=== PATIENT | female | born 1955 | race Caucasian/White ===

== ENCOUNTER → 2020-10-09 | Outpatient (CLI) | payer OTHER ==
[~2020-10-09] MED LIST: ASPI-1197 PO; ATOR10 PO; DEXL60CA3 PO; FISH1CAP49 PO; MULT-1203 PO
== END | disposition home or self-care (01) ==
LOC: RAH 09:05
PROVIDERS: ATTEND Internal Medicine Gastroenterology
DX: R12 Heartburn (principal); Z98.84 Bariatric surgery status
CPT/HCPCS: 74240

== ENCOUNTER → 2022-02-10 | Outpatient (CLI) | payer OTHER | END | disposition home or self-care (01) | LOC: SHCH 07:33 | PROVIDERS: ATTEND Student in an Organized Health Care Education/Training Program | DX: R07.9 Chest pain, unspecified (principal); E78.5 Hyperlipidemia, unspecified | CPT/HCPCS: 93306 ==

== ENCOUNTER → 2022-02-13 | Outpatient (CLI) | payer MEDICARE ==
[2022-02-13 12:46] LABS: ALBUMIN 3.6 g/dL (3.5-5.0); CREATININE 1.3 mg/dL (0.5-1.5); POTASSIUM 4.1 mmol/L (3.5-5.1); TOTAL PROTEIN, SERUM 7.1 g/dL (6.0-8.3)
== END | disposition home or self-care (01) ==
LOC: LAB 08:08
PROVIDERS: ATTEND Student in an Organized Health Care Education/Training Program
DX: R07.9 Chest pain, unspecified (principal)
CPT/HCPCS: 36415; 80053

== ENCOUNTER → 2022-02-19 | Outpatient (CLI) | payer MEDICARE ==
[~2022-02-19] MED LIST changes: +IOHEXOL 350 MG/ML 100ML INFUS..BTL IV ONE; +METOPROLOL TARTRATE 1 MG/ML 5ML VIAL IV ONE
== END | disposition home or self-care (01) ==
LOC: RAH 08:42
PROVIDERS: ATTEND Student in an Organized Health Care Education/Training Program
DX: R07.9 Chest pain, unspecified (principal); M47.815 Spondylosis without myelopathy or radiculopathy, thoracolumbar region
CPT/HCPCS: 75574; J3490; Q9967

== ENCOUNTER → 2022-06-06 | Outpatient (CLI) | payer MEDICARE ==
[~2022-06-06] MED LIST changes: -IOHEXOL 350 MG/ML 100ML INFUS..BTL IV ONE; -METOPROLOL TARTRATE 1 MG/ML 5ML VIAL IV ONE
== END | disposition home or self-care (01) ==
LOC: RAH 11:08
PROVIDERS: ATTEND Student in an Organized Health Care Education/Training Program
DX: K82.8 Other specified diseases of gallbladder (principal); N20.0 Calculus of kidney
CPT/HCPCS: 74176

== ENCOUNTER → 2022-06-16 | Outpatient (CLI) | payer MEDICARE ==
[2022-06-16 13:23] LABS: ALBUMIN 3.6 g/dL (3.5-5.0); CREATININE 1.3 mg/dL (0.5-1.5); POTASSIUM 3.8 mmol/L (3.5-5.1); TOTAL PROTEIN, SERUM 6.6 g/dL (6.0-8.3)
== END | disposition home or self-care (01) ==
LOC: LAB 08:27
PROVIDERS: ATTEND Student in an Organized Health Care Education/Training Program
DX: I10 Essential (primary) hypertension (principal); E78.5 Hyperlipidemia, unspecified
CPT/HCPCS: 36415; 80053; 80061

== ENCOUNTER → 2023-04-08 | Outpatient (CLI) | payer MEDICARE ==
[2023-04-08 12:33] LABS: ALBUMIN 3.8 g/dL (3.5-5.0); BILIRUBIN,TOTAL 0.9 mg/dL (0.2-1.0); CREATININE 1.3 mg/dL (0.5-1.5); POTASSIUM 3.8 mmol/L (3.5-5.1); TOTAL PROTEIN, SERUM 6.8 g/dL (6.0-8.3)
== END | disposition home or self-care (01) ==
LOC: LAB 11:20
PROVIDERS: ATTEND Student in an Organized Health Care Education/Training Program
DX: N17.9 Acute kidney failure, unspecified (principal); E78.5 Hyperlipidemia, unspecified
CPT/HCPCS: 36415; 80053; 80061

== ENCOUNTER 2024-02-01 11:45 | Day surgery (SDC) | payer MEDICARE ==
[2024-01-28 10:35] LABS: BASOPHILS # (AUTO) 0.05 K/uL (0.00-0.20); BASOPHILS % (AUTO) 1.1 % (0.0-5.0); EOSINOPHILS # (AUTO) 0.22 K/uL (0.00-0.70); EOSINOPHILS % (AUTO) 4.6 % (0.0-8.0); HEMATOCRIT 37.3 % (36-48); IMMATURE GRANULOCYTE ABSOLUTE 0.01 K/uL (0-1); LYMPHOCYTES # (AUTO) 2.1 K/uL (1.0-4.8); LYMPHOCYTES % (AUTO) 44.8 % (21.0-51.0); MEAN CORPUSCULAR HEMOGLOBIN 31.4 pg (27.0-33.0); MEAN CORPUSCULAR HGB CONC 32.7 g/dL (32.0-36.0); MEAN CORPUSCULAR VOLUME 95.9 fL (79-99); MONOCYTES # (AUTO) 0.5 K/uL (0.1-1.0); MONOCYTES % (AUTO) 9.7 % (3.0-13.0); NEUTROPHILS # (AUTO) 1.9 K/uL (1.8-7.7); NEUTROPHILS % (AUTO) 39.6 % (40.0-77.0); PLATELET COUNT (AUTO) 174 K/uL (130-400); RED BLOOD CELL COUNT(AUTO) 3.89 MIL/uL (4.00-5.50); RED CELL DISTRIBUTION WIDTH 13.2 % (11.0-15.5); WHITE BLOOD COUNT (AUTO) 4.8 K/uL (4.8-10.8)
[2024-01-28 10:40] LABS: CREATININE 1.2 mg/dL (0.5-1.0)
[2024-01-28 11:16] VITALS: BP 111/55; PULSE 58; RESP 16; TEMP 97.1
[2024-02-01] VITALS (13 sets, daily range): BP systolic 101–129; BP diastolic 49–68; PULSE 59–87; RESP 16–20; TEMP 96.9–98
[~2024-02-01] VITALS: Ht 160 cm; Wt 58.5 kg
[~2024-02-01 11:45] MED LIST changes: -ASPI-1197 PO; -ATOR10 PO; +ATOR10TA69 PO; +CALC-1125 PO; +CHOL2000 PO; +CYCL30DR OU; -DEXL60CA3 PO; +DONE-53 PO; -FISH1CAP49 PO; -MULT-1203 PO; +OMEP1PAC7 PO; +PSYL0.4C2 PO; +SEMA1PEN5 SQ; +SENN8.6T32 PO; +VITAMIN B12 IM
[2024-02-01] MEDS ORDERED: BUPIvacaine/PF 0.25% 30ML VIAL IJ ONE (12:36)
[2024-02-01] MEDS: LACTATED RINGERS 1000ML 1,000 ML IV ONE (13:07)
[2024-02-01] MEDS: ceFAZolin SODIUM 2 GM VIAL ONE (13:07)
[2024-02-01] MEDS ORDERED: FENTanyl CITRate PF 50 MCG/1 ML 2ML VIAL ONE ×2 (13:23→15:36)
[2024-02-01] MEDS ORDERED: MIDAZOLAM HCL 1 MG/ML 2ML VIAL ONE (13:23)
[2024-02-01] MEDS ORDERED: FAMOTIDINE 20MG VIAL IV ONE (13:23)
[2024-02-01] MEDS: INDOCYANINE GREEN 25 MG VIAL IJ ONE (13:32)
[2024-02-01] MEDS ORDERED: metoCLOPRAmide 10 MG/2 ML VIAL ONE (15:34)
[2024-02-01] MEDS ORDERED: GLYCOPYRROLATE 0.2 MG/ML 5 ML VIAL ONE (15:35)
[2024-02-01] MEDS ORDERED: phenylEPHRINE HCL 10 MG/ML 1ML VIAL IV ONE (15:35)
[2024-02-01] MEDS ORDERED: NEOSTIGMINE METHYLSULFATE 1MG/ML IV ONE (15:35)
[2024-02-01] MEDS ORDERED: proPOFol 10 MG/ML 20ML VIAL IV ONE (15:35)
[2024-02-01] MEDS ORDERED: ondanSETRON 4MG INJ ONE (15:35)
[2024-02-01] MEDS ORDERED: ePHEDrine SULFate 50 MG/ML AMPULE ONE (15:35)
[2024-02-01] MEDS ORDERED: MEPERIDINE-PF 25 MG/ML SYG ONE (15:35)
[2024-02-01] MEDS ORDERED: rocuRONium bROMide 10MG/1ML 5ML VL ONE (15:36)
[2024-02-01] MEDS: acetaMINOPHEN 1,000 MG/100 ML VIAL IV ONE (15:45)
== END 2024-02-01 16:45 | disposition home or self-care (01) ==
LOC: DAH 11:45
PROVIDERS: ATTEND Surgery
DX: K80.10 Calculus of gallbladder with chronic cholecystitis without obstruction (principal); K82.9 Disease of gallbladder, unspecified; E11.22 Type 2 diabetes mellitus with diabetic chronic kidney disease; N18.9 Chronic kidney disease, unspecified; E78.5 Hyperlipidemia, unspecified; K21.9 Gastro-esophageal reflux disease without esophagitis; F32.A Depression, unspecified; M81.0 Age-related osteoporosis without current pathological fracture; Z98.84 Bariatric surgery status; Z90.710 Acquired absence of both cervix and uterus; Z98.49 Cataract extraction status, unspecified eye; Z79.899 Other long term (current) drug therapy
CPT/HCPCS: 80048; 85025; 86850; 86900; 86901; 36415; 93005; 47563; 88304; A6260; A4663; J7030; A4215 ×2; J7120; J3490 ×4; J3010 ×2; J0665; J2250; J2704; J2405; J2710; J2175; J2765; J2371; J0690; A4223; A4222; A4221; A4600